=== PATIENT | male | born 1940 | race Caucasian/White ===

== ENCOUNTER 2016-11-13 07:38 | Day surgery (SDC) | payer MEDICARE, MEDICAID ==
[~2016-11-13] VITALS: Ht 165.1 cm; Wt 38.4 kg
[~2016-11-13 07:38] MED LIST: CeFAZolin 2 GM/DEXTROSE 50 ML IV ONE; DEXAMETHASONE SOD PHOS 4 MG/ML VIAL IVP ONE; EPHEDrine SULFATE 50 MG/ML VIAL IM ONE; FentaNYL CITRATE-PF 100 MCG/2 ML VIAL IVP ONE; LIDOCAINE HCL/PF 2% 5 ML VIAL IM ONE; METOCLOPRAMIDE HCL 5 MG/ML 2 ML VIAL IVP ONE; MIDAZOLAM HCL 2 MG/2 ML VIAL IVP ONE; ONDANSETRON HCL 4 MG/2 ML VIAL IVP ONE; PROPOFOL 1% 20 ML VIAL IVP ONE; SUCCINYLCHOLINE CHLORIDE 20 MG/ML 10 ML VIAL IVP ONE
[2016-11-13] MEDS ORDERED: RINGERS SOLUTION,LACTATED 1,000 ML IV ONE ×2 (07:51→08:00)
[2016-11-13] MEDS ORDERED: CeFAZolin 2 GM/DEXTROSE 50 ML IV ONE (07:51)
[2016-11-13] MEDS ORDERED: DONE10TA PO (08:23)
[2016-11-13] MEDS ORDERED: LEVO75TA4 PO (08:23)
[2016-11-13] MEDS ORDERED: TAMS0.4C32 PO (08:23)
[2016-11-13] MEDS ORDERED: CITA20TA9 PO (08:23)
[2016-11-13] MEDS ORDERED: DIVA125T PO (08:23)
[2016-11-13] MEDS ORDERED: MEMA5 PO (08:23)
[2016-11-13] MEDS ORDERED: AMLO2.5T PO (08:23)
[2016-11-13] MEDS ORDERED: ACET1TAB12 PO (08:23)
[2016-11-13] MEDS ORDERED: PANT40TA25 PO (08:23)
[2016-11-13 08:26] LABS: BASOPHILS % (AUTO) 0.6 % (0.0-2.0); EOSINOPHILS % (AUTO) 1.9 % (1.0-6.0); HEMATOCRIT 30.7 % (41-53); HEMOGLOBIN 9.8 g/dL (13.5-17.5); LYMPHOCYTES # (AUTO) 3.5 K/uL (1.0-4.8); LYMPHOCYTES % (AUTO) 37.8 % (22.0-44.0); MEAN CORPUSCULAR HGB CONC 31.8 G/dL (31.0-37.0); MEAN CORPUSCULAR VOLUME 88 fL (80-100); MONOCYTES % (AUTO) 10.9 % (2.0-9.0); NEUTROPHILS # (AUTO) 4.6 K/uL (1.8-7.7); NEUTROPHILS % (AUTO) 48.8 % (40.0-70.0); PLATELET COUNT (AUTO) 206 K/uL (150-450); RED BLOOD CELL COUNT(AUTO) 3.49 MIL/uL (4.50-5.90); RED CELL DISTRIBUTION WIDTH 15.6 % (11.5-14.5); WHITE BLOOD COUNT (AUTO) 9.3 K/uL (4.5-11.0)
[2016-11-13 08:39] LABS: ANION GAP 9 mmol/L (8-16); CARBON DIOXIDE 28 mmol/L (22-29); CHLORIDE 107 mmol/L (98-107); CREATININE 1.12 mg/dL (0.60-1.30); GLOMERULAR FILTR. RATE CALC > 60 mL/min (>60); POTASSIUM 4.2 mmol/L (3.5-5.1); SODIUM SERUM 144 mmol/L (136-145); UREA NITROGEN, BLOOD 27 mg/dL (7-18)
[2016-11-13] MEDS ORDERED: LIDOCAINE HCL 2%/EPI 1:200,000/PF 10 ML VIAL ONE (09:17)
[2016-11-13] MEDS ORDERED: BUPIVACAINE HCL/PF 0.5% 30 ML VIAL ONE (09:18)
[2016-11-13] MEDS ORDERED: MEPERIDINE-PF 25 MG/ML SYRINGE IVP PRN (10:00)
[2016-11-13] MEDS ORDERED: OXYGEN THERAPY IH SCH (10:00)
[2016-11-13] MEDS ORDERED: ACETAMINOPHEN 500 MG TABLET PO PRN (11:15)
[2016-11-13] MEDS ORDERED: HYDROmorphone 2 MG/ML SYRINGE ONE (11:27)
[2016-11-13] MEDS: HYDROmorphone 2 MG/ML SYRINGE IVP PRN ×3 (11:28→11:55)
[2016-11-13] MEDS ORDERED: FentaNYL CITRATE-PF 100 MCG/2 ML VIAL ONE (11:32)
[2016-11-13] MEDS: FentaNYL CITRATE-PF 100 MCG/2 ML VIAL IVP PRN ×2 (11:35→11:45)
== END 2016-11-13 13:00 | disposition home or self-care (01) ==
LOC: SURGERY 07:38
PROVIDERS: ATTEND Surgery
DX: M31.6 Other giant cell arteritis (principal); G43.909 Migraine, unspecified, not intractable, without status migrainosus; E03.9 Hypothyroidism, unspecified; I10 Essential (primary) hypertension; F03.90 Unspecified dementia, unspecified severity, without behavioral disturbance, psychotic disturbance, mood disturbance, and anxiety; D64.9 Anemia, unspecified; Z98.890 Other specified postprocedural states; Z87.11 Personal history of peptic ulcer disease; Z95.0 Presence of cardiac pacemaker
CPT/HCPCS: 36415; 37609; 80048; 85025; 88305; 88313; 93005; J0330; J0690; J1100; J1170; J2250; J2405; J2704; J2765; J3010; J3490 ×4; J7120